=== PATIENT | female | born 1955 | race Caucasian/White ===

== ENCOUNTER → 2017-09-07 | Outpatient (CLI) | payer BC ==
[~2017-09-07] MED LIST: ASPI81TA28 PO; ATOR10TA82 PO; CALC500T83 PO; TRIA37.5 PO
--- NOTE | 2017-09-08 07:55 | MAMMOGRAPHY REPORT ---
BILATERAL DIGITAL SCREENING MAMMOGRAM TOMOSYNTHESIS WITH CAD: 09/07/2017 TECHNIQUE: Breast tomosynthesis in addition to standard 2D mammography was performed. Current study was also evaluated with a Computer Aided Detection (CAD) system. COMPARISON: Comparison is made to exams dated: 08/27/2015 mammogram, 08/22/2014 mammogram, 3 mammogram, 07/25/2012 mammogram, 07/06/2011 mammogram, and 06/30/2010 mammogram - [facility]. BREAST COMPOSITION: The tissue of both breasts is almost entirely fatty. FINDINGS: No suspicious masses, calcifications, or areas of architectural distortion are noted in ei ther breast. There has been no significant interval change compared to prior exams. Bilateral asymme tries and bilateral benign-appearing calcifications are not significantly changed. A biopsy marker c lip is again noted in the right upper outer quadrant. Benign-appearing oval 18 mm mass in the left a nterior breast is stable. IMPRESSION: ACR BI-RADS CATEGORY 2: BENIGN There is no mammographic evidence of malignancy. A 1 year screening mammogram is recommended. The pa tient will receive written notification of the results. Approximately 10% of breast cancers are not detected with mammography. A negative mammographic report should not delay biopsy if a clinically suggestive mass is present. Anahi Cruz M.D. /:09/08/2017 07:37:11 Research And Evaluation Manager: Ambreen SPANN)(Kalpesh), [facility] letter sent: Normal 1/2 BI-RADS Code: ACR BI-RADS Category 2: Benign
== END | disposition home or self-care (01) ==
LOC: C.MAMM 17:03
PROVIDERS: ATTEND Family Medicine
DX: Z12.31 Encounter for screening mammogram for malignant neoplasm of breast (principal)

== ENCOUNTER 2022-12-13 17:22 | Inpatient (IN) ==
[2022-12-13 18:23] LABS: Basophils # (auto) 0.03 K/uL (0-0.2); Basophils % (auto) 0.3 %; Eosinophils # (auto) 0.02 K/uL (0-0.50); Eosinophils % (auto) 0.2 %; Hematocrit (blood only) 37.4 % (37.0-47.0); Hemoglobin 13.4 g/dl (12.0-16.0); Immature Granulocytes # (auto) 0.04 K/uL (0.01-0.20); Immature Granulocytes % (auto) 0.4 %; Lymphocytes # (auto) 1.05 K/uL (1.2-3.4); Lymphocytes % (auto) 10.1 %; Mean Corpuscular Hemoglobin 30.2 pg (25.0-34.0); Mean Corpuscular Hgb Conc 35.8 g/dL (32.0-36.0); Mean Corpuscular Volume 84.4 fL (80.0-100.0); Mean Platelet Volume 9.4 fL (9.4-12.4); Monocytes # (auto) 1.23 K/uL (0.11-0.59); Monocytes % (auto) 11.9 %; Neutrophils # (auto) 7.98 K/uL (1.40-6.50); Neutrophils % (auto) 77.1 %; Platelet Count 425 K/uL (130-400); RDW Coefficient of Variation 12.4 % (11.5-14.5); RDW Standard Deviation 37.5 fL (36.4-46.3); Red Blood Count 4.43 M/uL (4.20-5.40); White Blood Count 10.35 K/ul (4.8-10.8)
[2022-12-13 18:38] LABS: Albumin Globulin Ratio 1.2 (0.9-2); Albumin Level 4.1 gm/dl (3.4-5.0); BUN Creatinine Ratio 23.8 (10-20); Bilirubin,Total 0.6 mg/dl (0.2-1.0); Creatinine Clr Calc Pharmacy 109.4 ml/min; Est GFR (African American) 106.8 ml/min; Est GFR (Non-African American) 92.2 ml/min; Globulin 3.5 gm/dl (2.5-4.0); Potassium 3.7 mmol/L (3.5-5.1); Total Protein 7.6 gm/dl (6.0-8.3)
[2022-12-13] MEDS ORDERED: PIPERACILLIN/TAZOBACTAM 4.5 GM/120 ML BAG IV ONE (21:58)
--- NOTE | 2022-12-14 00:08 | Emergency Department Note ---
History of Present Illness General Chief Complaint: Abdominal Pain Stated Complaint: REF BY DOC,ABDOMINAL PAIN,BLOCKAGE Time Seen by Provider: 12/13/22 19:54 History of Present Illness Provider Complaint: abdominal pain Onset (ago): 5 day(s) Pain Consistency: constant Severity: moderate Maximum Pain Intensity: 5 Current Pain Intensity: 5 Quality: + stabbing, + aching, + sharp and + dull Relieved By: + nothing Exacerbated By: + nothing Context: no foreign travel, no possible food poisoning, no recent antibiotic use, no recent surgery/procedure or no history of similar episodes Associated Symptoms: no nausea, no vomiting, no diarrhea, no fever, no chills, no constipation, no dysuria, no hematemesis, no hematochezia, no melena, no hematuria, no anorexia, no headache and no chest pain Decreased flatulence Home Medications Medication Instructions Recorded Confirmed Type aspirin 81 mg tablet,delayed 81 mg PO QPM 08/25/21 12/13/22 History release atorvastatin 10 mg tablet 10 mg PO QAM 08/25/21 12/13/22 History triamterene 37.5 1 tab PO QAM 08/25/21 12/13/22 History mg-hydrochlorothiazide 25 mg tablet cholecalciferol (vitamin D3) 125 125 mcg PO QAM 04/30/22 12/13/22 History mcg (5,000 unit) tablet (Vitamin D3) ciprofloxacin HCl 500 mg tablet 500 mg PO AMHS 12/13/22 12/13/22 History metronidazole 500 mg tablet 500 mg PO TID 12/13/22 12/13/22 History ondansetron HCl 4 mg tablet 4 mg PO Q6 PRN Nausea 12/13/22 12/13/22 History Allergies Allergy/AdvReac Type Severity Reaction Status Date / Time No Known Allergies Allergy Verified 12/13/22 22:14 Past Med/Surg History Medical History Elevated blood sugar level HX, PT NOTICED LEVELS CREEPING UP WITH WELLNESS CHECK THROUGH EMPLOYMENT - HAS NOT BEEN DX DIABETIC OR PRE DIABETIC. Heartburn OVER THE LAST YR / ON OCC / NO MEDS FOR / FLARES UP WHEN EAT LATE AT NIGHT History of colon polyps BENIGN HTN (hypertension) Hypercholesteremia BORDERLINE Morbid obesity with BMI of 50.0-59.9, adult Surgical History History of cataract surgery History of colonoscopy History of left breast biopsy History of tooth extraction ALL TEETH AND WISDOM TEETH REMOVED AGE 12 Family History Father Family history of throat cancer Family history of diabetes mellitus Mother Family history of diabetes mellitus Grandmother Family history of diabetes mellitus Brother Family history of diabetes mellitus Sister Family history of diabetes mellitus Social History Smoking Status: Never smoker Hx Alcohol Use: Yes Alcohol type: wine Hx Substance Use: No Preferred Language: Tajik Communication Ability: Effective Cobol Programmer Required: No Beliefs That Will Affect Care: None Current Living Situation: Alone Feels Safe at Home: Yes Assistive Devices: Denture - Upper, Denture - Lower, Glasses and Hearing Aid - Bilateral Physical Exam Vital Signs: Vital Signs - 24 hr 12/13/22 17:41 12/13/22 19:54 12/13/22 21:09 Temperature 36.8 C Temperature Source Temporal Artery Sc an Pulse Rate 73 Pulse Rate [Finger ] 87 74 Pulse Rhythm [Fing er] Regular Respiratory Rate 18 18 18 Respiratory Effort / Characteristics Non-Labored Non-Labored Non-Labored Respiratory Depth Normal Normal Normal Blood Pressure 186/85 H Blood Pressure [Ri ght Arm] 166/67 H 147/71 H Blood Pressure Yelena n 118 Blood Pressure Yelena n [Right Arm] 100 96 Blood Pressure Pos ition [Right Arm] Lying Lying Pulse Oximetry 93 97 98 Oxygen Delivery Me thod Room Air Room Air Sepsis Recent Feve r Within 48 Hours No Sepsis New/Unexpla ined Change in Men harley Status No Sepsis Action Take n by Nursing No Action Required Physical Exam: Physical Exam HENT: Exam performed. -Head: Normocephalic and atraumatic. -Mouth/Throat: The oropharynx is clear and moist. No trismus in the jaw. No dental abscesses or uvula swelling. No oropharyngeal exudate or tonsillar abscesses. EYES: Conjunctivae and EOM are normal. Pupils are equal, round, and reactive to light. Right eye exhibits no discharge. Left eye exhibits no discharge. No scleral icterus. NECK: Normal range of motion. Neck supple. No JVD present. No spinous process tenderness present. No rigidity. No tracheal deviation and normal range of motion present. CV: Normal rate, regular rhythm, normal heart sounds and intact distal pulses. There is no peripheral edema. Palpable radial pulses bue. PULM/CHEST: Effort normal and breath sounds normal. No respiratory distress. No stridor. She has no wheezes. She has no rales. ABD: The abdomen is soft. She has no distension. There is no tenderness. There is no rebound, no guarding LYMPH: No cervical adenopathy. NEURO: Motor and sensation grossly intact Course Course 1953: The patient was evaluated in room C12. A complete history and physical exam was performed 2044:External medical records were reviewed. Patient had an outpatient CT scan done at [facility] today which showed a 3 cm inflamed outpouching arising from a loop of small bowel left mid abdomen likely small bowel diverticulitis walled off perforation considered less likely. The plan is to admit the patient to the medicine service with surgery on consult however there is delay getting in touch with surgery team as listed on-call is Dr. Cummins but Dr. Cummins states she is not in call and not in town. We are attempting to determine which surgeon is on-call. 2214: Claims Representative was able to contact Dr. Odonnell who stated Dr. Tellez was on- call. I spoke with Dr. Tejal Tellez and they are okay with the plan to admit the patient to the medicine service and then they will be on consult. Administered Medications Discontinued Medications Piperacillin Sod/Tazobactam Sod (Zosyn) 4.5 gm in 120 mls @ 240 mls/hr IV NOW ONE Stop: 12/13/22 22:27 Last Infusion: 12/13/22 22:55 Dose: 0 mls/hr Documented By: Admin: 12/13/22 22:15 Dose: 240 mls/hr Documented By: HENOK Medical Decision Making Medical Records Attestation: I reviewed the patient's medical records. External medical records were reviewed. Patient had an outpatient CT scan done at [facility] which showed a 3 cm inflamed outpouching arising from a loop of small bowel left mid abdomen likely small bowel diverticulitis walled off perforation considered less likely. Laboratory Data Attestation: I reviewed the patient's lab results. 12/13/22 17:50 12/13/22 17:50 Lab Results 12/13/22 12/13/22 12/13/22 Range/Units 17:50 17:50 22:00 WBC 10.35 (4.8-10.8) K/ul RBC 4.43 (4.20-5.40) M/uL Hgb 13.4 (12.0-16.0) g/dl Hct 37.4 (37.0-47.0) % MCV 84.4 (80.0-100.0) fL MCH 30.2 (25.0-34.0) pg MCHC 35.8 (32.0-36.0) g/dL RDW Std Deviation 37.5 (36.4-46.3) fL RDW Coeff of Jamie 12.4 (11.5-14.5) % Plt Count 425 H (130-400) K/uL MPV 9.4 (9.4-12.4) fL Immature Gran % (Auto) 0.4 % Neut % (Auto) 77.1 % Lymph % (Auto) 10.1 % [place] % (Auto) 11.9 % Eos % (Auto) 0.2 % Baso % (Auto) 0.3 % Neut # (Auto) 7.98 H (1.40-6.50) K/uL Lymph # (Auto) 1.05 L (1.2-3.4) K/uL [place] # (Auto) 1.23 H (0.11-0.59) K/uL Eos # (Auto) 0.02 (0-0.50) K/uL Baso # (Auto) 0.03 (0-0.2) K/uL Immature Gran # (Auto) 0.04 (0.01-0.20) K/uL Sodium 128 L (136-145) mmol/L Potassium 3.7 (3.5-5.1) mmol/L Chloride 92 L (98-107) mmol/L Carbon Dioxide 29 (21-32) mmol/L Anion Gap 7 (3-11) BUN 15 (6-23) mg/dl Creatinine 0.63 (0.6-1.2) mg/dl Est Cr Clr Drug Dosing 109.4 ml/min Est GFR ( Amer) 106.8 ml/min Est GFR (Non-Af Amer) 92.2 ml/min BUN/Creatinine Ratio 23.8 H (10-20) Glucose 98 (70-99(Fasting)) mg/dl Calcium 9.0 (8.5-10.1) mg/dl Total Bilirubin 0.6 (0.2-1.0) mg/dl AST 13 (13-39) U/L ALT 13 (7-52) U/L Alkaline Phosphatase 80 (34-104) U/L Total Protein 7.6 (6.0-8.3) gm/dl Albumin 4.1 (3.4-5.0) gm/dl Globulin 3.5 (2.5-4.0) gm/dl Albumin/Globulin Ratio 1.2 (0.9-2) Lipase 3 L (11-82) U/L SARS-CoV-2, RNA, NAAT NEGATIVE (NEGATIVE) MDM Narrative 1953: The patient was evaluated in room C12. A complete history and physical exam was performed 2044:External medical records were reviewed. Patient had an outpatient CT scan done at [facility] today which showed a 3 cm inflamed outpouching arising from a loop of small bowel left mid abdomen likely small bowel diverticulitis walled off perforation considered less likely. The plan is to admit the patient to the medicine service with surgery on consult however there is delay getting in touch with surgery team as listed on-call is Dr. Cummins but Dr. Cummins states she is not in call and not in town. We are attempting to determine which surgeon is on-call. 2214: [place] was able to contact Dr. Odonnell who stated Dr. Tellez was on- call. I spoke with Dr. Tejal Tellez and they are okay with the plan to admit the patient to the medicine service and then they will be on consult. Impression & Plan Diverticulitis Discharge Plan Visit Data Chief Complaint: Abdominal Pain Stated Complaint: REF BY DOC,ABDOMINAL PAIN,BLOCKAGE ED Provider: Hood Johnson Discharge Problem: Diverticulitis Patient Disposition: Being Evaluated by Hospitalist Forms Stand Alone Forms: My [facility] Prescriptions Prescriptions: No Action atorvastatin 10 mg Tablet 10 mg PO QAM aspirin 81 mg Tablet,Delayed Release (Dr/Ec) 81 mg PO QPM triamterene-hydrochlorothiazid 37.5-25 mg Tablet 1 tab PO QAM cholecalciferol (vitamin D3) [Vitamin D3] 125 mcg (5,000 unit) Tablet 125 mcg PO QAM metronidazole 500 mg tablet 500 mg PO TID Rx Instructions: start 12/13/22 take for 10 days end 12/23/22 take in morning,afternoon and before bed ciprofloxacin HCl 500 mg tablet 500 mg PO AMHS Rx Instructions: start 12/13/22 take for 10 days end 12/23/22 ondansetron HCl 4 mg tablet 4 mg PO Q6 PRN (Reason: Nausea) Referrals Referrals: Roya Mcconnell DO [Primary Care Provider] -
[2022-12-14] MEDS ORDERED: MoRPHine SULFATE 2 MG/ML CARP IV PRN (01:55)
[2022-12-14] MEDS ORDERED: ACETAMINOPHEN 325 MG TAB PO PRN (01:55)
[2022-12-14] MEDS ORDERED: ONDANSETRON INJ 2 MG/ML 2 ML VIAL IV PRN (01:55)
[2022-12-14] MEDS: D5W AND NSS 1,000 ML IV SCH ×2 (02:15→10:45)
--- NOTE | 2022-12-14 02:24 | Surgery Consultation ---
Date of Consultation December 14, 2022 Assessment & Plan (1) Diverticulitis: pt is a 67 year-old female who presents to ER with 5 days history LLQ pain, CT scan- Patient had an outpatient CT scan done at [facility] today which showed a 3 cm inflamed outpouching arising from a loop of small bowel left mid abdomen likely small bowel diverticulitis walled off perforation considered less likely. IMP: small bowel diverticulitis, plan, base on H/P, labs and CT scan , no signs for bowel perforation, I agreed with internal medicine team admit pt to hospital for conservative treatment now, NPO, iv fluid, control pain, iv antibiotic, repeat labs in morning, will F/U, pt agreed with the plan, I answered all questions, History of Present Illness Reason for Consultation: small bowel diverticulitis Requesting Physician: Hood Johnson Attending Physician: Lio Bruce MD History of Present Illness History of Present Illness General Chief Complaint: Abdominal Pain Stated Complaint: REF BY DOC,ABDOMINAL PAIN,BLOCKAGE Time Seen by Provider: 12/13/22 19:54 History of Present Illness Provider Complaint: abdominal pain Onset (ago): 5 day(s) Pain Consistency: constant Severity: moderate Maximum Pain Intensity: 5 Current Pain Intensity: 5 Quality: + stabbing, + aching, + sharp and + dull Relieved By: + nothing Exacerbated By: + nothing Context: no foreign travel, no possible food poisoning, no recent antibiotic use, no recent surgery/procedure or no history of similar episodes Associated Symptoms: no nausea, no vomiting, no diarrhea, no fever, no chills, no constipation, no dysuria, no hematemesis, no hematochezia, no melena, no hematuria, no anorexia, no headache and no chest pain Decreased flatulence I ( Marycruz Tellez MD ) got a call for consult small bowel diverticulitis, I reviewed pt's H/P, labs and CT scan report with pt, pt feels better after she passed some gas, last BM 2 days ago, Home Medications Medication Instructions Recorded Confirmed Type aspirin 81 mg tablet,delayed 81 mg PO QPM 08/25/21 12/13/22 History release atorvastatin 10 mg tablet 10 mg PO QAM 08/25/21 12/13/22 History triamterene 37.5 1 tab PO QAM 08/25/21 12/13/22 History mg-hydrochlorothiazide 25 mg tablet cholecalciferol (vitamin D3) 125 125 mcg PO QAM 04/30/22 12/13/22 History mcg (5,000 unit) tablet (Vitamin D3) ciprofloxacin HCl 500 mg tablet 500 mg PO AMHS 12/13/22 12/13/22 History metronidazole 500 mg tablet 500 mg PO TID 12/13/22 12/13/22 History ondansetron HCl 4 mg tablet 4 mg PO Q6 PRN Nausea 12/13/22 12/13/22 History Allergies Allergy/AdvReac Type Severity Reaction Status Date / Time No Known Allergies Allergy Verified 12/13/22 22:14 Past Med/Surg History Medical History Elevated blood sugar level HX, PT NOTICED LEVELS CREEPING UP WITH WELLNESS CHECK THROUGH EMPLOYMENT - HAS NOT BEEN DX DIABETIC OR PRE DIABETIC.Heartburn OVER THE LAST YR / ON OCC / NO MEDS FOR / FLARES UP WHEN EAT LATE AT NIGHTHistory of colon polyps BENIGNHTN (hypertension) Hypercholesteremia BORDERLINEMorbid obesity with BMI of 50.0-59.9, adult Surgical History History of cataract surgery History of colonoscopy History of left breast biopsy History of tooth extraction ALL TEETH AND WISDOM TEETH REMOVED AGE 12 Family History Father Family history of throat cancer Family history of diabetes mellitusMother Family history of diabetes mellitusGrandmother Family history of diabetes mellitusBrother Family history of diabetes mellitusSister Family history of diabetes mellitus Social History Smoking Status: Never smoker Hx Alcohol Use: Yes Alcohol type: wine Hx Substance Use: No Preferred Language: Luxembourgish Communication Ability: Effective Feed House Supervisor Required: No Beliefs That Will Affect Care: None Current Living Situation: Alone Feels Safe at Home: Yes Assistive Devices: Denture - Upper, Denture - Lower, Glasses and Hearing Aid - Bilateral Allergies Allergy/AdvReac Type Severity Reaction Status Date / Time No Known Allergies Allergy Verified 12/13/22 22:14 Home Medications Medication Instructions Recorded Confirmed Type aspirin 81 mg tablet,delayed 81 mg PO QPM 08/25/21 12/13/22 History release atorvastatin 10 mg tablet 10 mg PO QAM 08/25/21 12/13/22 History triamterene 37.5 1 tab PO QAM 08/25/21 12/13/22 History mg-hydrochlorothiazide 25 mg tablet cholecalciferol (vitamin D3) 125 125 mcg PO QAM 04/30/22 12/13/22 History mcg (5,000 unit) tablet (Vitamin D3) ciprofloxacin HCl 500 mg tablet 500 mg PO AMHS 12/13/22 12/13/22 History metronidazole 500 mg tablet 500 mg PO TID 12/13/22 12/13/22 History ondansetron HCl 4 mg tablet 4 mg PO Q6 PRN Nausea 12/13/22 12/13/22 History Patient History Medical History Elevated blood sugar level HX, PT NOTICED LEVELS CREEPING UP WITH WELLNESS CHECK THROUGH EMPLOYMENT - HAS NOT BEEN DX DIABETIC OR PRE DIABETIC. Heartburn OVER THE LAST YR / ON OCC / NO MEDS FOR / FLARES UP WHEN EAT LATE AT NIGHT History of colon polyps BENIGN HTN (hypertension) Hypercholesteremia BORDERLINE Morbid obesity with BMI of 50.0-59.9, adult Surgical History History of cataract surgery History of colonoscopy History of left breast biopsy History of tooth extraction ALL TEETH AND WISDOM TEETH REMOVED AGE 12 Family History Father Family history of throat cancer Family history of diabetes mellitus Mother Family history of diabetes mellitus Grandmother Family history of diabetes mellitus Brother Family history of diabetes mellitus Sister Family history of diabetes mellitus Social History Smoking Status: Never smoker Hx Alcohol Use: Yes Alcohol type: wine Hx Substance Use: No Preferred Language: Luxembourgish Communication Ability: Effective Feed House Supervisor Required: No Beliefs That Will Affect Care: None Current Living Situation: Alone Feels Safe at Home: Yes Assistive Devices: Denture - Upper, Denture - Lower, Glasses and Hearing Aid - Bilateral Review of Systems Constitutional: obesity, no distress, Eyes: as per Subjective / HPI Respiratory: as per Subjective / HPI Cardiovascular: as per Subjective / HPI Gastrointestinal: colon polyp Genitourinary: as per Subjective / HPI Musculoskeletal: as per Subjective / HPI Neurologic: as per Subjective / HPI Psychiatric: as per Subjective / HPI Endocrine: as per Subjective / HPI Hematologic / Lymphatic: as per Subjective / HPI Physical Exam Constitutional: WD/WN, vitals as above no distress, Eyes: PERRL, conjunctivae normal, anicteric sclerae Neck: trachea midline, no thyromegaly Respiratory: normal respiratory effort, lungs clear to auscultation Cardiovascular: RRR, no murmur, no edema Gastrointestinal (Abdomen): soft, mild tenderness at LLQ area, no rebound pain, ND, BS +, Musculoskeletal: no cyanosis or clubbing, extremities motor strength 5/5 Neurologic: patellar DTR's 2+ bilat, sensation intact Psychiatric: A+Ox3, euthymic affect Results & Data ([facility]) Vital Signs (Past 12 Hours) Vital Signs Temp Pulse Pulse Resp BP BP Pulse Ox 12/14/22 01:55 36.8 C 85 18 119/76 94 12/14/22 01:30 78 20 146/56 H 97 12/13/22 21:09 74 18 147/71 H 98 12/13/22 19:54 87 18 166/67 H 97 12/13/22 17:41 36.8 C 73 18 186/85 H 93 O2 Del Method 12/14/22 01:55 Room Air 12/14/22 01:30 12/13/22 21:09 12/13/22 19:54 Room Air 12/13/22 17:41 Room Air Laboratory Results Abnormal lab results 12/13/22 12/13/22 Range/Units 17:50 17:50 Plt Count 425 H (130-400) K/uL Neut # (Auto) 7.98 H (1.40-6.50) K/uL Lymph # (Auto) 1.05 L (1.2-3.4) K/uL [place] # (Auto) 1.23 H (0.11-0.59) K/uL Sodium 128 L (136-145) mmol/L Chloride 92 L (98-107) mmol/L BUN/Creatinine Ratio 23.8 H (10-20) Lipase 3 L (11-82) U/L Diagnostic Findings Patient had an outpatient CT scan done at [facility] which showed a 3 cm inflamed outpouching arising from a loop of small bowel left mid abdomen likely small bowel diverticulitis walled off perforation considered less likely.
--- NOTE | 2022-12-14 04:03 | History and Physical Report ---
DATE OF ADMISSION: 12/14/2022. CHIEF COMPLAINT: Abdominal pain and diverticulitis. HISTORY OF PRESENT ILLNESS: This is a 67-year-old female with past medical history significant for hyperlipidemia, hypertension, morbid obesity, vitamin D deficiency, family history of cardiovascular disease, who presents with abdominal pain. The patient says the pain is going on from last Tuesday and she went to see family doctor on 12/13/[address] scan with IV and oral contrast was done, which showed "3 cm inflamed outpouching arising from the loop of small bowel in the left mid abdomen, likely small bowel diverticulitis, wall perforation is considered less likely. Mild dilatation of CBD of uncertain chronicity. Correlate with LFTs and consider further evaluation with MRCP. Indeterminate 2.75 cm right adrenal nodule, further characterization desired. Recommend adrenal protocol MRI, abdominal CT scan." Family doctor talked to the GI and recommended to follow up in three weeks with them with MR enterography.PCP advised the patient if symptoms do not get better, to go to the ER. She was not passing gas and she was having abdominal pain, that is why she came to the ER. Currently, after passing the gas, the abdominal pain improved. She also received antibiotics in the ER. Currently, resting comfortably and hemodynamically stable, afebrile. She felt nauseous, but no vomiting. When the pain was severe, it was 5/10 in severity. She was constipated. Denies any blood in stools. Normal bladder movements. Denies any chest pain, no shortness of breath, no cough, no headache, no dizziness, no blurred vision, no earache, no runny nose, no sore throat. ALLERGIES: No known drug allergies. PAST MEDICAL HISTORY: As mentioned above. PAST SURGICAL HISTORY: Biopsy of breast lesion, which was benign; colonoscopy. MEDICATIONS: The patient is on aspirin 81 mg p.o. daily, atorvastatin 10 mg p.o. daily, vitamin D 125 mcg p.o. daily, Zofran 4 mg p.o. q. 6 hours p.r.n., triamterene/hydrochlorothiazide 1 tablet p.o. daily. FAMILY HISTORY: Significant for aunt has breast cancer; father has throat cancer, diabetes, heart disorder; mother had ovarian cancer; brother has hypertension; sister has hypertension. SOCIAL HISTORY: No smoking, no alcohol, no drug use. REVIEW OF SYSTEMS: As per HPI. Rest of the review of systems is negative. PHYSICAL EXAMINATION: GENERAL: The patient is morbidly obese, not in acute distress. VITAL SIGNS: Temperature 36.8, pulse 74, respiratory rate 18, blood pressure 147/71, oxygen 98% on room air. HEENT: Pupils equal, round and reactive to light. Oral mucosa moist. NECK: No JVD or neck masses. CARDIOVASCULAR: S1 and S2 heard. Regular rate and rhythm. No murmur, no gallop. RESPIRATORY SYSTEM: Normal AP diameter. No accessory muscle use. No wheezing, crackles. ABDOMEN: Soft, bowel sounds present. Mild left lower quadrant tenderness. No guarding, no rigidity, no distention. CENTRAL NERVOUS SYSTEM: Cranial nerves II through XII are grossly intact, nonfocal. EXTREMITIES: No edema, no erythema. LABORATORY DATA: WBC 10.3, hemoglobin 13.4, hematocrit 37.4, platelets 425. Sodium 128 potassium 3.7, chloride 92, CO2 of 29, BUN 15, creatinine 0.6, serum glucose 98, calcium 9, total bilirubin 0.6, AST 13, ALT 13, alkaline phosphatase 82. Lipase 3. SARS-CoV-2 rapid test negative. ASSESSMENT AND PLAN: This is a 67-year-old female who was having abdominal pain since last Tuesday and went to PCP and CAT scan is showing small bowel diverticulitis. 1. Abdominal pain, small bowel diverticulitis. Family doctor spoke with GI and recommended to follow with the GI in three weeks with MR enterography. ER spoke with the surgery enhanced environmental operator and advised for admission with antibiotics. Received Zosyn in the ER, will continue with IV Zosyn. IV fluids, n.p.o. for now, IV antiemetics, IV pain medication p.r.n. Consult surgery in the a.m. and follow up with GI with MR enterography. 2. CAT scan is also showing right adrenal nodule, 2.5 cm: Needs follow up. Mild dilatation of CBD, on CAT scan. LFTs are okay. 3. Morbid obesity: Needs counseling. 4. Hyperlipidemia: On statin. 5. Hypertension: On Maxzide, will monitor the blood pressure. 6. Hyponatremia. Sodium 128. getting fluids. Will follow labs in am. 7. Deep venous thrombosis prophylaxis: Placed on Lovenox. DISPOSITION: Closely monitor in the medical floor. PT/OT prior to discharge. Social service to help with discharge planning. Level 1 full code. Job ID: [id number] [facility]
[2022-12-14] MEDS: PIPERACILLIN/TAZOBACTAM 4.5 GM in DEXTROSE 5% 100 ML IV SCH ×3 (04:20→19:48)
[2022-12-14 04:36] LABS: Appearance Urine Clear (Clear); Bacteria Urine Automated Negative (Negative); Bilirubin Urine Negative (Negative); Blood Urine Negative (Negative); Cast Urine Automated 0 /lpf (0-5); Color Urine Yellow; Glucose Urine UA Negative (Negative); Ketones Urine Trace (Negative); Leukocyte Esterase Urine 2+ (Negative); Nitrite Urine Negative (Negative); Protein Urine Negative (Negative); RBC Urine Automated 0-4 /hpf (0-4); Specific Gravity Urine 1.008 (1.000-1.030); Urobilinogen Urine Negative (Negative)
[2022-12-14 07:18] LABS: Basophils # (auto) 0.03 K/uL (0-0.2); Basophils % (auto) 0.4 %; Eosinophils # (auto) 0.15 K/uL (0-0.50); Hematocrit (blood only) 33.7 % (37.0-47.0); Hemoglobin 12.1 g/dl (12.0-16.0); Immature Granulocytes # (auto) 0.04 K/uL (0.01-0.20); Immature Granulocytes % (auto) 0.5 %; Lymphocytes # (auto) 1.41 K/uL (1.2-3.4); Lymphocytes % (auto) 18.9 %; Mean Corpuscular Hemoglobin 30.4 pg (25.0-34.0); Mean Corpuscular Hgb Conc 35.9 g/dL (32.0-36.0); Mean Corpuscular Volume 84.7 fL (80.0-100.0); Mean Platelet Volume 9.2 fL (9.4-12.4); Monocytes # (auto) 1.01 K/uL (0.11-0.59); Monocytes % (auto) 13.6 %; Neutrophils # (auto) 4.81 K/uL (1.40-6.50); Neutrophils % (auto) 64.6 %; Platelet Count 378 K/uL (130-400); RDW Coefficient of Variation 12.6 % (11.5-14.5); RDW Standard Deviation 38.5 fL (36.4-46.3); Red Blood Count 3.98 M/uL (4.20-5.40); White Blood Count 7.45 K/ul (4.8-10.8)
[2022-12-14 07:38] LABS: BUN Creatinine Ratio 17.4 (10-20); Calcium 8.7 mg/dl (8.5-10.1); Creatinine Clr Calc Pharmacy 99.9 ml/min; Est GFR (African American) 103.7 ml/min; Est GFR (Non-African American) 89.4 ml/min; Magnesium 2.2 mg/dl (1.7-2.4); Potassium 3.4 mmol/L (3.5-5.1)
[2022-12-14] MEDS: ATORVASTATIN 10 MG TAB PO SCH (08:24)
[2022-12-14] MEDS: CHOLECALCIFEROL 5,000 UNITS 125 MCG TAB PO SCH (08:24)
[2022-12-14] MEDS: ENOXAPARIN INJ 40 MG/0.4 ML SYR SQ SCH ×2 (08:25→19:47)
[2022-12-14] MEDS: TRIAMTERENE/HCTZ 37.5/25MG TAB PO SCH (08:25)
[2022-12-14] MEDS: POTASSIUM CHLORIDE / WTR 10 MEQ/100 ML PLCT IV SCH ×2 (10:10→11:16)
--- NOTE | 2022-12-14 13:37 | Hospitalist Progress Note ---
Date of Service December 14, 2022 Assessment & Plan (1) Diverticulitis: Plan This is a 67-year-old female with significant past medical history of morbid obesity, HTN, HLD who presented to ED on 12/14/2022 secondary to abdominal pain. Abdominal pain Small bowel diverticulitis Admit to medical Currently admitted for IV antibiotics, IV Zosyn PCP spoke with GI who recommended MR enterography in 3 weeks Currently n.p.o. GEN surgery consulted - discussed with surg, will upgrade to clears Continue IV fluids, analgesia and antibiotics CBD dilatation noted on CT scan LFTs normal follow LFTS, consider MRCP if abnormal Adrenal nodule - noted on CT recommend OP adrenal protocol MRI HTN continue home meds HLD continue statin DVT ppx:Lovenox Dispo: medical PCP: Jayesh FULL CODE Pt was seen and examined in collaboration with Dr. Trammell, please see addendum. This is not a billable service as pt was seen by admitting hospitalist in water fitness instructor hours. Admission and Anticipated Discharge Date Admission Date: December 14, 2022 Supervising Physician Co-Signing Physician Notes Patient was seen and examined independently. Chart reviewed. Patient did well on bowel rest, after discussing with surgery diet advanced to clears. Continue zosyn, IVF for now. Can likely d/c IV fluids tomorrow if she tolerates clears and diet is advanced further Subjective Patient seen and examined in room 375 Follow-up acute diverticulitis. Overall states abdominal pain has completely resolved. States, "I am ready to go home." She states abdominal pain has started off and on for approximately the past 6 days. Pain is in left lower quadrant and radiates, "everywhere. It is described as sharp and stabbing and dull in nature. It was associated with nausea, but no vomiting. Her last bowel movement was 3 days ago when she felt she was more constipated. She denies any melena or hematochezia. She currently denies any fever, chills, sweats, lightheadedness, dizziness, chest pain, shortness of breath, nausea, vomiting. She is requesting a diet. Review of Systems Review of Systems: All systems reviewed & are unremarkable except as noted in HPI & below Physical Exam Physical Exam: Gen: WD/WN, female, sitting in bedside chair, NAD, A&O x3 HEENT: Normocephalic, atraumatic, conjunctivae moist, sclerae anicteric, mucous membranes moist. Lung: Clear to Auscultation bilaterally, no wheezes/rales/rhonchi Heart: Regular rate, regular rhythm, no murmurs, rubs, or gallops Abdomen: Soft, NT, ND +BS x 4 Extremities: No edema Skin: Warm, no rash, negative turgor. Results & Data Results & Data ([facility]) Vital Signs (Past 12 Hours) Vital Signs Temp Pulse Pulse Resp BP BP Pulse Ox 12/14/22 07:20 12/14/22 07:33 36.9 C 68 18 111/71 93 12/14/22 02:20 12/14/22 01:55 36.8 C 85 18 119/76 94 12/14/22 01:30 78 20 146/56 H 97 O2 Del Method 12/14/22 07:20 Room Air 12/14/22 07:33 Room Air 12/14/22 02:20 Room Air 12/14/22 01:55 Room Air 12/14/22 01:30 Laboratory Results Short CBC 12/13/22 12/14/22 Range/Units 17:50 06:52 WBC 10.35 7.45 (4.8-10.8) K/ul Hgb 13.4 12.1 (12.0-16.0) g/dl Hct 37.4 33.7 L (37.0-47.0) % Plt Count 425 H 378 (130-400) K/uL BMP 12/13/22 12/14/22 17:50 06:52 Sodium 128 L 133 L Potassium 3.7 3.4 L Chloride 92 L 98 Carbon Dioxide 29 30 BUN 15 12 Creatinine 0.63 0.69 Glucose 98 109 H Calcium 9.0 8.7 Liver Function 12/13/22 Range/Units 17:50 Total Bilirubin 0.6 (0.2-1.0) mg/dl AST 13 (13-39) U/L ALT 13 (7-52) U/L Alkaline Phosphatase 80 (34-104) U/L Albumin 4.1 (3.4-5.0) gm/dl Urine 12/14/22 Range/Units 04:25 Urine Color Yellow Urine Appearance Clear (Clear) Urine pH 6.0 (4.5-7.5) Ur Specific [place] 1.008 (1.000-1.030) Urine Protein Negative (Negative) Urine Glucose (UA) Negative (Negative)
[2022-12-14] MEDS: LACTATED RINGER'S 1,000 ML IV SCH (15:36)
[2022-12-14] MEDS ORDERED: ASPIRIN 81 MG ECTAB PO SCH (21:00)
[2022-12-15] MEDS: PIPERACILLIN/TAZOBACTAM 4.5 GM in DEXTROSE 5% 100 ML IV SCH ×2 (04:52→11:44)
[2022-12-15] MEDS: LACTATED RINGER'S 1,000 ML IV SCH (04:52)
[2022-12-15 06:21] LABS: Basophils # (auto) 0.06 K/uL (0-0.2); Basophils % (auto) 0.9 %; Eosinophils # (auto) 0.31 K/uL (0-0.50); Eosinophils % (auto) 4.8 %; Hematocrit (blood only) 35.6 % (37.0-47.0); Hemoglobin 12.5 g/dl (12.0-16.0); Immature Granulocytes # (auto) 0.05 K/uL (0.01-0.20); Immature Granulocytes % (auto) 0.8 %; Lymphocytes # (auto) 1.08 K/uL (1.2-3.4); Lymphocytes % (auto) 16.8 %; Mean Corpuscular Hgb Conc 35.1 g/dL (32.0-36.0); Mean Corpuscular Volume 85.6 fL (80.0-100.0); Mean Platelet Volume 9.1 fL (9.4-12.4); Monocytes # (auto) 1.02 K/uL (0.11-0.59); Monocytes % (auto) 15.9 %; Neutrophils # (auto) 3.89 K/uL (1.40-6.50); Neutrophils % (auto) 60.8 %; Platelet Count 378 K/uL (130-400); RDW Coefficient of Variation 12.8 % (11.5-14.5); RDW Standard Deviation 39.5 fL (36.4-46.3); Red Blood Count 4.16 M/uL (4.20-5.40); White Blood Count 6.41 K/ul (4.8-10.8)
[2022-12-15 06:25] LABS: BUN Creatinine Ratio 13.4 (10-20); Calcium 9.1 mg/dl (8.5-10.1); Creatinine Clr Calc Pharmacy 102.9 ml/min; Est GFR (African American) 104.7 ml/min; Est GFR (Non-African American) 90.3 ml/min; Potassium 3.4 mmol/L (3.5-5.1)
[2022-12-15] MEDS ORDERED: POTASSIUM CHLORIDE CRTAB 20 MEQ TABCR PO STA (07:48)
[2022-12-15] MEDS: CHOLECALCIFEROL 5,000 UNITS 125 MCG TAB PO SCH (09:00)
[2022-12-15] MEDS: ATORVASTATIN 10 MG TAB PO SCH (09:00)
[2022-12-15] MEDS: TRIAMTERENE/HCTZ 37.5/25MG TAB PO SCH (09:01)
[2022-12-15] MEDS: ENOXAPARIN INJ 40 MG/0.4 ML SYR SQ SCH (09:02)
--- NOTE | 2022-12-15 09:57 | Surgery Progress Note ---
Date of Service December 15, 2022 Assessment & Plan (1) Diverticulitis: Plan: 67 year-old female who presents to ER with 5 days history LLQ pain, CT scan- Patient had an outpatient CT scan done at [facility] today which showed a 3 cm inflamed outpouching arising from a loop of small bowel left mid abdomen likely small bowel diverticulitis walled off perforation considered less likely. Plan: No further abdominal pain will advance to low fiber diet for lunch. IF does well okay from surgical standpoint for discharge this afternoon will need 10 days of oral cipro/flagyl low fiber diet Discussed with Dr. Tellez who agrees with above. Admission and Anticipated Discharge Date Admission Date: December 14, 2022 Subjective feeling good this am no abdominal pain tolerating clear liquids without any abdominal pain feeling slightly full but passing alot of gas no fevers or chills no nausea or vomiting Physical Exam Constitutional: WD/WN, vitals as above + obese, cooperative and comfortable; no acute distress and not ill appearing Neck: normal visual inspection and trachea midline Respiratory: normal respiratory effort; no respiratory distress Gastrointestinal (Abdomen): Inspection/Auscultation: abdomen normal to inspection and + hypoactive bowel sounds; abdomen not distended and + abnormal bowel sounds Percussion/Palpation: abdomen soft; abdomen nontender, no guarding, abdomen not rigid and abdomen not firm Skin: no rashes, warm and dry Psychiatric: A+Ox3, euthymic affect Results & Data ([facility]) Vital Signs (Past 12 Hours) Vital Signs Temp Pulse Resp BP Pulse Ox O2 Del Method 12/15/22 07:46 36.6 C 72 18 144/82 H 95 Room Air 12/15/22 07:31 Room Air Laboratory Results 12/15/22 12/15/22 12/14/22 Range/Units 05:41 05:41 12:02 WBC 6.41 (4.8-10.8) K/ul RBC 4.16 L (4.20-5.40) M/uL Hgb 12.5 (12.0-16.0) g/dl Hct 35.6 L (37.0-47.0) % MCV 85.6 (80.0-100.0) fL MCH 30.0 (25.0-34.0) pg MCHC 35.1 (32.0-36.0) g/dL RDW Std Deviation 39.5 (36.4-46.3) fL RDW Coeff of Jamie 12.8 (11.5-14.5) % Plt Count 378 (130-400) K/uL MPV 9.1 L (9.4-12.4) fL Immature Gran % (Auto) 0.8 % Neut % (Auto) 60.8 % Lymph % (Auto) 16.8 % [place] % (Auto) 15.9 % Eos % (Auto) 4.8 % Baso % (Auto) 0.9 % Neut # (Auto) 3.89 (1.40-6.50) K/uL Lymph # (Auto) 1.08 L (1.2-3.4) K/uL [place] # (Auto) 1.02 H (0.11-0.59) K/uL Eos # (Auto) 0.31 (0-0.50) K/uL Baso # (Auto) 0.06 (0-0.2) K/uL Immature Gran # (Auto) 0.05 (0.01-0.20) K/uL Sodium 136 (136-145) mmol/L Potassium 3.4 L (3.5-5.1) mmol/L Chloride 101 (98-107) mmol/L Carbon Dioxide 30 (21-32) mmol/L Anion Gap 5 (3-11) BUN 9 (6-23) mg/dl Creatinine 0.67 (0.6-1.2) mg/dl Est Cr Clr Drug Dosing 102.9 ml/min Est GFR ( Amer) 104.7 ml/min Est GFR (Non-Af Amer) 90.3 ml/min BUN/Creatinine Ratio 13.4 (10-20) Glucose 97 (70-99(Fasting)) mg/dl POC Glucose 102 H (70-99) mg/dl Calcium 9.1 (8.5-10.1) mg/dl
[2022-12-15] MEDS ORDERED: DOCUSATE SODIUM/SENNA 50/8.6MG TAB PO SCH (11:30)
--- NOTE | 2022-12-15 11:34 | Discharge Summary ---
Discharge Summary Date of Service December 15, 2022 Notes For Next Care Provider Patient was admitted for treatment of small bowel diverticulitis. She was treated with IV Zosyn and will be discharged to complete course of oral ciprofloxacin and Flagyl. It is recommended she follow-up with GI in 3 weeks for possible MR enterography. CAT scan of abdomen pelvis also incidentally noted a 2.5 cm right adrenal nodule. Recommended dedicated MRI with adrenal protocol. Patient had low potassium while inpatient. On day of discharge was 3.4. She received 40 mEq of oral potassium on day of discharge. Medication Changes From Visit None Pt will complete course of Cipro and Flagyl for tx of small bowel diverticulitis. Admission HPI Per Admitting Provider HISTORY OF PRESENT ILLNESS: This is a 67-year-old female with past medical history significant for hyperlipidemia, hypertension, morbid obesity, vitamin D deficiency, family history of cardiovascular disease, who presents with abdominal pain. The patient says the pain is going on from last Tuesday and she went to see family doctor on 12/13/[address] scan with IV and oral contrast was done, which showed "3 cm inflamed outpouching arising from the loop of small bowel in the left mid abdomen, likely small bowel diverticulitis, wall perforation is considered less likely. Mild dilatation of CBD of uncertain chronicity. Correlate with LFTs and consider further evaluation with MRCP. Indeterminate 2.75 cm right adrenal nodule, further characterization desired. Recommend adrenal protocol MRI, abdominal CT scan." Family doctor talked to the GI and recommended to follow up in three weeks with them with MR enterography.PCP advised the patient if symptoms do not get better, to go to the ER. She was not passing gas and she was having abdominal pain, that is why she came to the ER. Currently, after passing the gas, the abdominal pain improved. She also received antibiotics in the ER. Currently, resting comfortably and hemodynamically stable, afebrile. She felt nauseous, but no vomiting. When the pain was severe, it was 5/10 in severity. She was constipated. Denies any blood in stools. Normal bladder movements. Denies any chest pain, no shortness of breath, no cough, no headache, no dizziness, no blurred vision, no earache, no runny nose, no sore throat. Admission Exam Per Admitting Provider PHYSICAL EXAMINATION: GENERAL: The patient is morbidly obese, not in acute distress. VITAL SIGNS: Temperature 36.8, pulse 74, respiratory rate 18, blood pressure 147/71, oxygen 98% on room air. HEENT: Pupils equal, round and reactive to light. Oral mucosa moist. NECK: No JVD or neck masses. CARDIOVASCULAR: S1 and S2 heard. Regular rate and rhythm. No murmur, no gallop. RESPIRATORY SYSTEM: Normal AP diameter. No accessory muscle use. No wheezing, crackles. ABDOMEN: Soft, bowel sounds present. Mild left lower quadrant tenderness. No guarding, no rigidity, no distention. CENTRAL NERVOUS SYSTEM: Cranial nerves II through XII are grossly intact, nonfocal. EXTREMITIES: No edema, no erythema. Principal Dx & Hospital Course #1 = Principal Diagnosis (1) Diverticulitis: Plan This is a 67-year-old female with significant past medical history of morbid obesity, HTN, HLD who presented to ED on 12/14/2022 secondary to abdominal pain. Abdominal pain Small bowel diverticulitis Patient admitted to medical on 12/14 Currently admitted for IV antibiotics, IV Zosyn PCP spoke with GI who recommended MR enterography in 3 weeks Gradually advancing diet, if tolerates low fiber diet at lunch will be discharged this afternoon Discussed with general surgery regarding plan for discharge Discontinue IV fluid Will be discharged to complete 10-day course of ciprofloxacin and Flagyl CBD dilatation noted on CT scan LFTs normal follow LFTS, consider MRCP if abnormal Adrenal nodule - noted on CT recommend OP adrenal protocol MRI HTN continue home meds HLD continue statin DVT ppx:Lovenox Dispo: medical PCP: Jayesh FULL CODE Discharge Exam Gen: WD/WN, female, sitting in bedside chair, NAD, A&O x3 HEENT: Normocephalic, atraumatic, conjunctivae moist, sclerae anicteric, mucous membranes moist. Lung: Clear to Auscultation bilaterally, no wheezes/rales/rhonchi Heart: Regular rate, regular rhythm, no murmurs, rubs, or gallops Abdomen: Soft, NT, ND +BS x 4 Extremities: No edema Skin: Warm, no rash, negative turgor. Updated Medication List Medication Instructions Recorded Confirmed Type aspirin 81 mg tablet,delayed 81 mg PO QPM 08/25/21 12/13/22 History release atorvastatin 10 mg tablet 10 mg PO QAM 08/25/21 12/13/22 History triamterene 37.5 1 tab PO QAM 08/25/21 12/13/22 History mg-hydrochlorothiazide 25 mg tablet cholecalciferol (vitamin D3) 125 125 mcg PO QAM 04/30/22 12/13/22 History mcg (5,000 unit) tablet (Vitamin D3) ciprofloxacin HCl 500 mg tablet 500 mg PO AMHS 12/13/22 12/13/22 History metronidazole 500 mg tablet 500 mg PO TID 12/13/22 12/13/22 History ondansetron HCl 4 mg tablet 4 mg PO Q6 PRN Nausea 12/13/22 12/13/22 History Hospital Stay Data Consultations 12/13/22 22:01 ED Decision to Admit Stat 12/14/22 08:00 Consult General Surgery Routine Pending Results Patient Have Any Pending Studies at Discharge: No Discharge Instructions Given to Patient (Per Discharging Provider) MEDICATION CHANGES: Ciprofloxacin 500mg twice daily, Next dose evening of 12/15/22. Metronidazole 500 mg 3 times daily, Next dose evening of 12/15/22. You may the two antibiotics mentioned above that were already prescribed by you Primary Care Provider. Complete entire course of antibiotic. Probiotic once daily until antibiotics are completed. You may continue all other home medications. SUMMARY OF TEST RESULTS: You were admitted to hospital secondary to small bowel diverticulitis. You were treated with IV antibiotics, IV fluids and bowel rest. Your abdominal pain resolved and your diet was slowly advanced. You will be discharged to complete antibiotic course. Your potassium was low during hospital stay and this was replaced. PENDING TEST RESULTS: None RECOMMENDATIONS FOR FOLLOW-UP: Please follow-up with primary care provider as scheduled. Recommend following a low fiber diet for the next 6 to 8 weeks. Please discuss with your primary care provider when to add more fiber to your diet. Recommend [id number] use of stool softener either docusate sodium 100 mg daily or MiraLAX 17 g powder once daily to promote daily bowel habits. This can be purchased [id number]. On CAT scan it was also noted that you had a 2.5 cm right adrenal nodule. It is recommended that you have an adrenal protocol MRI and your primary care provider can order this. Your last colonoscopy was in August of 2021. Recommend continued follow up for routine screenings. Per notes from her primary care provider it is recommended you follow-up with GI in 3 weeks for a test called MR enterography to eval small bowel. Avoid Alcohol and Kombucha products while taking Flagyl. OTHER INSTRUCTIONS: Seek medical attention if you have: * temperature above 101 * chest pain or trouble breathing * abdominal pain, nausea, vomiting * diarrhea, dark stools or bloody stools * any unanswered questions or concerns Call 911 if symptoms are severe. Please take good care of yourself. It has been a pleasure taking care of you. Please take care of yourself. If you have any questions regarding your recent hospitalization please contact [facility] and [facility] @ [phone]. Lavinia Vincent PA-C Total Time Total Time Spent Total Time Spent (In Minutes): 45 minutes
== END 2022-12-15 16:03 | disposition home or self-care (01) | DRG 392 ==
LOC: ED 17:22 → 3N 12-14 00:49 → SUATTDRO 12-14 00:49 → 3N 12-14 01:44